=== PATIENT | female | born 1980 | race Hispanic/Latino ===

== ENCOUNTER 2022-08-10 09:21 | Emergency (ER) | payer OTHER ==
[~2022-08-10] VITALS: Ht 167.6 cm; Wt 90.7 kg
[2022-08-10] MEDS ORDERED: DICYCLOMINE HCL 20 MG/2 ML VIAL IM ONE (09:45)
[2022-08-10] MEDS ORDERED: SODIUM CHLORIDE 0.9% 1000ML 1,000 ML IV STA (09:45)
[2022-08-10 10:27] LABS: BASOPHILS % 0.2 % (0.0-1.0); HEMOGLOBIN 14.1 g/dL (12.0-16.0); LYMPHOCYTES # (AUTO) 1.4 (1.0-3.2); LYMPHOCYTES % 14.2 % (18.0-39.1); MEAN CORPUSCULAR VOLUME 96.7 fL (81-99); MONOCYTES # (AUTO) 0.3 (0.2-0.8); MONOCYTES % 3.3 % (4.4-11.3); NEUTROPHILS # (AUTO) 8.1 (2.1-6.9); PLATELET COUNT 346 x10e3/uL (140-360); RED BLOOD COUNT 4.55 x10e6/uL (3.6-5.1); RED CELL DISTRIBUTION WIDTH 12.3 % (11.7-14.4)
[2022-08-10] MEDS ORDERED: ONDANSETRON HCL INJ 2MG/ML 2ML 2 MG/ML VIAL IV ONE (10:30)
[2022-08-10 10:38] LABS: INR 0.96
[2022-08-10 10:39] LABS: PARTIAL THROMBOPLASTIN TIME 26.5 seconds (23.8-35.5)
[2022-08-10 10:43] LABS: ALANINE AMINOTRANSFERASE 46 IU/L (0-55); ALBUMIN 4.5 g/dL (3.5-5.0); ALBUMIN/GLOBULIN RATIO 1.1 (0.8-2.0); ALKALINE PHOSPHATASE 58 IU/L (40-150); ANION GAP 14.7 mmol/L (8-16); BLOOD UREA NITROGEN 11 mg/dL (7-26); BUN/CREATININE RATIO 14 (6-25); CARBON DIOXIDE 22 mmol/L (22-29); CHLORIDE 103 mmol/L (98-107); CREATINE KINASE 85 IU/L (29-168); CREATININE, SERUM 0.78 mg/dL (0.57-1.11); GLUCOSE 168 mg/dL (74-118); LIPASE 40 U/L (8-78); POTASSIUM 3.7 mmol/L (3.5-5.1); SODIUM 136 mmol/L (136-145)
[2022-08-10 11:11] LABS: CLARITY,URINE CLEAR (CLEAR); COLOR,URINE YELLOW (YELLOW)
[2022-08-10 11:12] LABS: BACTERIA,URINE MODERATE /HPF; EPITHELIAL CELLS,URINE MODERATE /LPF; KETONES,URINE NEGATIVE (NEGATIVE); LEUKOCYTE ESTERASE ,URINE NEGATIVE (NEGATIVE); NITRITE,URINE NEGATIVE (NEGATIVE); PROTEIN,URINE DIPSTICK NEGATIVE (NEGATIVE); URINE UROBILINOGEN 0.2 mg/dL (0.2 - 1); WBC,URINE (MAN) 0-5 /HPF (0-5)
[2022-08-10 11:13] LABS: MUCUS,URINE FEW (RARE)
[2022-08-10] MEDS ORDERED: IOPAMIDOL 370 MG/ML 100 ML INFUS..BTL INJ ONE (11:30)
[2022-08-10] MEDS ORDERED: DICYCLOMINE HCL20 MG PO (12:10)
[2022-08-10] MEDS ORDERED: ONDANSETRON ODT4 MG PO (12:10)
== END 2022-08-10 12:19 | disposition home or self-care (01) ==
LOC: ER 09:30
DX: R10.10 Upper abdominal pain, unspecified (principal); K80.20 Calculus of gallbladder without cholecystitis without obstruction; D25.9 Leiomyoma of uterus, unspecified; K76.0 Fatty (change of) liver, not elsewhere classified; I10 Essential (primary) hypertension; E03.9 Hypothyroidism, unspecified
CPT/HCPCS: 36415; 71045; 74177; 80053; 81001; 82550; 82553; 82948; 83690; 83735; 84484; 84702; 85025; 85610; 85730; 99284; C9113; J0500; J2405; J7030; Q9967

== ENCOUNTER 2022-08-25 13:13 | Emergency (ER) | payer OTHER ==
[~2022-08-25] VITALS: Ht 167.6 cm; Wt 90.7 kg
[~2022-08-25 13:13] MED LIST: DICYCLOMINE HCL20 MG PO; ONDANSETRON ODT4 MG PO
[2022-08-25 13:43] LABS: BASOPHILS % 0.2 % (0.0-1.0); EOSINOPHILS # (AUTO) 0.1 (0.0-0.4); EOSINOPHILS % 0.5 % (0.0-6.0); HEMATOCRIT 42.5 % (34.2-44.1); LYMPHOCYTES # (AUTO) 2.2 (1.0-3.2); LYMPHOCYTES % 22.7 % (18.0-39.1); MEAN CORPUSCULAR HEMOGLOBIN 30.6 pg (28-32); MEAN CORPUSCULAR HGB CONC 30.6 g/dL (31-35); MONOCYTES # (AUTO) 0.6 (0.2-0.8); MONOCYTES % 6.6 % (4.4-11.3); NEUTROPHILS # (AUTO) 6.8 (2.1-6.9); NEUTROPHILS % 69.8 % (38.7-80.0); PLATELET COUNT 327 x10e3/uL (140-360); RED BLOOD COUNT 4.25 x10e6/uL (3.6-5.1); RED CELL DISTRIBUTION WIDTH 12.6 % (11.7-14.4)
[2022-08-25] MEDS ORDERED: ONDANSETRON HCL INJ 2MG/ML 2ML 2 MG/ML VIAL IV STA (13:43)
[2022-08-25] MEDS ORDERED: LACTATED RINGER'S 1,000 ML INJ ONE ×2 (13:45)
[2022-08-25] MEDS ORDERED: FENTANYL CITRATE/PF 100MCG/2 ML INJ IV ONE (14:00)
[2022-08-25 14:01] LABS: CLARITY,URINE CLEAR (CLEAR); COLOR,URINE YELLOW (YELLOW); KETONES,URINE NEGATIVE (NEGATIVE); LEUKOCYTE ESTERASE ,URINE NEGATIVE (NEGATIVE); NITRITE,URINE NEGATIVE (NEGATIVE); PROTEIN,URINE DIPSTICK NEGATIVE (NEGATIVE); URINE UROBILINOGEN 0.2 mg/dL (0.2 - 1); WBC,URINE (MAN) 0-5 /HPF (0-5)
[2022-08-25 14:02] LABS: EPITHELIAL CELLS,URINE FEW /LPF
[2022-08-25 14:02] LABS: ALBUMIN 4.4 g/dL (3.5-5.0); ALBUMIN/GLOBULIN RATIO 1.1 (0.8-2.0); ANION GAP 13.5 mmol/L (8-16); CALCIUM 10.1 mg/dL (8.4-10.2); CREATININE, SERUM 0.76 mg/dL (0.57-1.11); POTASSIUM 3.5 mmol/L (3.5-5.1)
[2022-08-25 14:22] LABS: LIPASE 39 U/L (8-78)
[2022-08-25] MEDS ORDERED: DICYCLOMINE HCL20 MG PO (16:00)
[2022-08-25] MEDS ORDERED: HYDROCODON-ACE1 EA11 PO (16:00)
[2022-08-25] MEDS ORDERED: ONDANSETRON ODT4 MG PO (16:00)
[2022-08-25 16:18] VITALS: BP 128/77
== END 2022-08-25 16:18 | disposition home or self-care (01) ==
LOC: ER 13:16
DX: R10.11 Right upper quadrant pain (principal); K80.20 Calculus of gallbladder without cholecystitis without obstruction; I10 Essential (primary) hypertension; E03.9 Hypothyroidism, unspecified; R94.31 Abnormal electrocardiogram [ECG] [EKG]
CPT/HCPCS: 36415; 76705; 80053; 81001; 83690; 84484; 84702; 85025; 93005; 99284; J2405; J3010; J7121